=== PATIENT | male | born 1985 | race Caucasian/White ===

== ENCOUNTER → 2023-01-12 | Emergency (ER) | payer OTHER ==
[2023-01-12] VITALS (7 sets, daily range): BP systolic 124; BP diastolic 72; PULSE 100–134; RESP 18–27; TEMP 98.2; O2SAT 95–99
[~2023-01-12] VITALS: Ht 170.2 cm; Wt 102.3 kg
[~2023-01-12] MED LIST: 0.9% SODIUM CHLORIDE 5 ML NEB SOLUTION NEB ONE; ACETAMINOPHEN 500 MG TABLET PO ONE; ALBUTEROL SULFATE 2.5 MG/0.5 ML 5 ML NEB SOLUTION NEB ONE; GuaiFENesin/D-METHORPHAN [SUGAR-FREE] 200-20MG/10 ML SYRUP UDCUP PO ONE; IPRATROPIUM BROMIDE 0.5 MG/2.5 ML NEB SOLUTION NEB ONE; MethylPREDNISolone SOD SUCC 125 MG/2 ML VIAL IVP ONE
[2023-01-12 08:54] LABS: BASOPHILS % (AUTO) 0.1 % (0.0-2.0); EOSINOPHILS % (AUTO) 0.1 % (1.0-6.0); HEMATOCRIT 50.5 % (41-53); LYMPHOCYTES % (AUTO) 8.3 % (22.0-44.0); MEAN CORPUSCULAR HGB CONC 33.7 G/dL (31.0-37.0); MEAN CORPUSCULAR VOLUME 86 fL (80-100); MONOCYTES # (AUTO) 0.1 K/uL (0.1-1.0); NEUTROPHILS # (AUTO) 10.6 K/uL (1.8-7.7); PLATELET COUNT (AUTO) 258 K/uL (150-450); RED BLOOD CELL COUNT(AUTO) 5.87 MIL/uL (4.50-5.90); RED CELL DISTRIBUTION WIDTH 13.2 % (11.5-14.5); WHITE BLOOD COUNT (AUTO) 11.7 K/uL (4.5-11.0)
[2023-01-12 08:55] LABS: COVID AG,FIA SOURCE NASAL SWAB
[2023-01-12 08:56] LABS: NEUTROPHILS % (AUTO) 90.5 % (40.0-70.0)
[2023-01-12 09:05] LABS: ANION GAP 11 mmol/L (8-16); CARBON DIOXIDE 25 mmol/L (22-29); CHLORIDE 102 mmol/L (98-107); CREATININE 0.84 mg/dL (0.60-1.30); GLOMERULAR FILTR. RATE CALC > 60 mL/min (>60); GLUCOSE,RANDOM 162 mg/dL (70-110); POTASSIUM 4.2 mmol/L (3.5-5.1); SODIUM SERUM 138 mmol/L (136-145); UREA NITROGEN, BLOOD 10 mg/dL (7-18)
[2023-01-12 09:10] LABS: ALANINE AMINOTRANSFERASE 46 U/L (12-78); ALBUMIN 4.1 g/dL (3.4-5.0); ALKALINE PHOSPHATASE 91 U/L (46-116); ASPARTATE AMINOTRANSFERASE 20 U/L (15-37); BILIRUBIN,TOTAL 0.4 mg/dL (0.1-1.0); C-REACTIVE PROTEIN QUANT 0.82 mg/dL (0.00-0.30); TOTAL PROTEIN, SERUM 8.8 g/dL (6.4-8.2)
[2023-01-12 09:13] LABS: TROPONIN I-HIGH SENSITIVITY 5 ng/L (<76)
[2023-01-12 09:21] LABS: INFLUENZA TYPE A NEGATIVE FOR TYPE A (NEGATIVE); INFLUENZA TYPE B NEGATIVE FOR TYPE B (NEGATIVE); SARS-COV2 (COVID) ANTIGEN,FIA Negative (Negative)
== END | disposition short-term general hospital (02) ==
LOC: EMS 08:28
DX: J45.902 Unspecified asthma with status asthmaticus (principal); Z20.822 Contact with and (suspected) exposure to COVID-19
CPT/HCPCS: 99291; 96374; 71045; 87426; 80053; 83605; 84484; 85025; 86140; 87040; 87804; 36415; 94660; 94640; 93005; J2930; Q9967; 94644